=== PATIENT | male | born 1995 | race Caucasian/White ===

== ENCOUNTER 2018-02-26 11:54 | Emergency (ER) | END 2018-02-26 14:06 | disposition home or self-care (01) ==

== ENCOUNTER 2018-02-28 10:16 | Emergency (ER) | END 2018-02-28 10:51 | disposition home or self-care (01) ==

== ENCOUNTER 2018-03-05 11:41 | Emergency (ER) | END 2018-03-05 14:20 | disposition home or self-care (01) ==